=== PATIENT | male | born 1995 | race Caucasian/White ===

== ENCOUNTER 2021-11-22 00:02 | Emergency (ER) | payer OTHER ==
[~2021-11-22 00:02] MED LIST: ANTIVERT 25MG T25 MG PO; AUGMENTIN 875-1 EACH PO; FLOXIN 0.3% OTIC5 ML EARLF; IBUPROFEN600 MG PO; ZOFRAN4 MG PO
[2021-11-22] MEDS ORDERED: OMNICEF 300 MG300 MG PO (00:34)
[2021-11-22] MEDS ORDERED: LODINE CAP 300300 MG PO (00:34)
== END 2021-11-22 00:45 | disposition home or self-care (01) ==
LOC: ER1 00:02
DX: H66.92 Otitis media, unspecified, left ear (principal); F17.210 Nicotine dependence, cigarettes, uncomplicated; I10 Essential (primary) hypertension
CPT/HCPCS: 99282